=== PATIENT | female | born 1950 | race African-American/Black ===

== ENCOUNTER 2017-11-15 14:20 | Emergency (ER) | payer SELFPAY ==
[~2017-11-15] VITALS: Ht 170.2 cm; Wt 100.0 kg
[~2017-11-15 14:20] MED LIST: ASPI-1160
[2017-11-15 14:48] VITALS: BP 198/86
== END 2017-11-15 16:00 | disposition home or self-care (01) ==
LOC: ER 14:20
DX: S05.01XA Injury of conjunctiva and corneal abrasion without foreign body, right eye, initial encounter (principal); W22.8XXA Striking against or struck by other objects, initial encounter; Y93.89 Activity, other specified; Y92.098 Other place in other non-institutional residence as the place of occurrence of the external cause
CPT/HCPCS: 99283

== ENCOUNTER 2018-08-05 07:27 | Emergency (ER) | payer SELFPAY ==
[~2018-08-05] VITALS: Ht 167.6 cm; Wt 102.0 kg
[2018-08-05 08:03] LABS: BASOPHILS % 0.5 % (0.0-2.0); EOSINOPHILS % 0.7 % (0.0-5.0); HEMATOCRIT. 42.8 % (36.0-48.0); HEMOGLOBIN. 14.1 g/dL (12.0-16.0); LYMPHOCYTES % 24.6 % (20.0-50.0); MEAN CORPUSCULAR VOLUME 90.8 fL (81.0-99.0); MEAN PLATELET VOLUME 7.9 fl (7.4-10.4); MONOCYTES % 7.3 % (2.0-8.0); NEUTROPHILS % 66.9 % (40.0-76.0); PLATELET 320 x1000/uL (130-400); RED BLOOD CELL COUNT 4.71 mill/uL (4.2-5.4); RED CELL DISTRIBUTION WIDTH 13.7 % (11.6-14.6)
[2018-08-05 08:10] LABS: CHLORIDE 106 mEq/L (98-107)
[2018-08-05 08:49] VITALS: BP 132/72
== END 2018-08-05 08:53 | disposition home or self-care (01) ==
LOC: ER 07:27
DX: K64.4 Residual hemorrhoidal skin tags (principal); K62.5 Hemorrhage of anus and rectum; I10 Essential (primary) hypertension; F12.10 Cannabis abuse, uncomplicated; Z79.82 Long term (current) use of aspirin; Z88.5 Allergy status to narcotic agent; Z88.0 Allergy status to penicillin
CPT/HCPCS: 36415; 99283

== ENCOUNTER 2020-06-05 20:40 | Emergency (ER) | payer MEDICAID, MEDICARE ==
[~2020-06-05] VITALS: Ht 162.6 cm; Wt 100.0 kg
[2020-06-05] MEDS ORDERED: DIPH25CA83 MT (22:35)
[2020-06-05 22:59] VITALS: BP 163/70
== END 2020-06-05 23:00 | disposition home or self-care (01) ==
LOC: ER 20:40
DX: L23.3 Allergic contact dermatitis due to drugs in contact with skin (principal); T50.B95A Adverse effect of other viral vaccines, initial encounter; Y93.89 Activity, other specified; I10 Essential (primary) hypertension; Y92.098 Other place in other non-institutional residence as the place of occurrence of the external cause
CPT/HCPCS: 99282

== ENCOUNTER 2020-06-06 21:31 | Emergency (ER) | payer MEDICAID, MEDICARE ==
[~2020-06-06] VITALS: Ht 162.6 cm; Wt 100.0 kg
[~2020-06-06 21:31] MED LIST changes: +DIPH25CA83 MT
[2020-06-06 21:37] VITALS: BP 183/86
[2020-06-06] MEDS ORDERED: DIPHENHYDRAMINE 25MG CAPSULE PO NR (22:15)
[2020-06-06] MEDS ORDERED: DIPHENHYDRAMINE 25MG CAPSULE PO ONE (22:15)
== END 2020-06-06 22:22 | disposition home or self-care (01) ==
LOC: ER 21:31
DX: M79.602 Pain in left arm (principal); S40.022A Contusion of left upper arm, initial encounter; L50.9 Urticaria, unspecified; T50.B95A Adverse effect of other viral vaccines, initial encounter; Y93.89 Activity, other specified; Y92.89 Other specified places as the place of occurrence of the external cause; I10 Essential (primary) hypertension
CPT/HCPCS: 99283; Q0163

== ENCOUNTER 2020-07-13 03:24 | Inpatient (IN) | payer MEDICAID, MEDICARE ==
[~2020-07-13] VITALS: Ht 157.5 cm; Wt 96.2 kg
[2020-07-13] MEDS ORDERED: NITROGLYCERIN OINT 1GM/INCH UDPKT TD ONE (04:15)
[2020-07-13] MEDS ORDERED: CLONIDINE 0.2MG TABLET PO ONE (04:15)
[2020-07-13] MEDS ORDERED: DIPHENHYDRAMINE 50MG/ML VIAL IV ONE (04:15)
[2020-07-13] MEDS ORDERED: METHYLPREDNISOLONE SOD SUCC 125 MG/2 ML VIAL IV ONE (04:15)
[2020-07-13] MEDS ORDERED: EPINEPHRINE 1:1000 1 MG/ML AMP INJ ONE (04:15)
[2020-07-13] MEDS ORDERED: DILTIAZEM HCL 120MG CAPSULE CD 24HR PO SCH (06:00)
[2020-07-13] MEDS ORDERED: DILTIAZEM HCL 5MG/ML 5ML VIAL IV ONE (06:00)
[2020-07-13] MEDS ORDERED: ONDANSETRON HCL 4MG/2ML INJ IV PRN (06:45)
[2020-07-13] MEDS ORDERED: TRAMADOL 50MG TABLET PO PRN (06:45)
[2020-07-13] MEDS ORDERED: ACETAMINOPHEN 325MG TABLET PO PRN ×2 (06:45)
[2020-07-13] MEDS ORDERED: LORAZEPAM 0.5MG TABLET PO PRN (06:45)
[2020-07-13] MEDS ORDERED: CLONIDINE 0.1MG TABLET PO PRN (06:45)
[2020-07-13] MEDS ORDERED: IPRATROPIUM/ALBUTEROL 0.5-3(2.5)MG/3ML NEB NEB PRN (06:45)
[2020-07-13] MEDS ORDERED: NITROGLYCERIN 0.4MG TABLET SL SL PRN (06:45)
[2020-07-13] MEDS ORDERED: GUAIFENESIN 200MG/10ML SUGAR FREE UDC PO PRN (06:45)
[2020-07-13 08:09] LABS: INR 1.1
[2020-07-13 08:14] LABS: T4 FREE 1.05 ng/dL (0.76-1.46)
[2020-07-13] MEDS ORDERED: ENOXAPARIN 100MG/ML SYR SUBCUT SCH ×2 (09:00→10:00)
[2020-07-13] MEDS ORDERED: DOCUSATE SODIUM 100MG CAPSULE PO PRN (09:00)
[2020-07-13] MEDS ORDERED: MAGNESIUM/ALUMINUM HYDROXIDE/SIMETHICONE 30ML UDC PO PRN (09:00)
[2020-07-13] MEDS ORDERED: ASPIRIN 325MG EC TABLET PO SCH (09:00)
[2020-07-13] MEDS: LISINOPRIL 20MG TABLET PO SCH ×3 (09:00→21:14)
[2020-07-13] MEDS: ZINC SULFATE 220 MG ( 50 ) CAPSULE PO SCH (09:40)
[2020-07-13] MEDS: FAMOTIDINE 20MG TABLET PO SCH ×2 (09:41→21:10)
[2020-07-13] MEDS: CHOLECALCIFEROL (D3) 1000 UNIT TABLET PO SCH (09:41)
[2020-07-13] MEDS: ASCORBIC ACID 500 MG TABLET PO SCH ×2 (09:41→21:10)
[2020-07-13] MEDS: DILTIAZEM HCL 60MG TABLET PO SCH ×2 (12:00→18:00)
[2020-07-13 12:43] LABS: FOLIC ACID (FOLATE) SERUM 18.6 ng/mL (>5.38)
[2020-07-13 15:09] VITALS: BP 133/66
[2020-07-13 16:15] VITALS: BP 133/66
[2020-07-13 17:39] LABS: BASOPHILS % 0.1 % (0.0-2.0); HEMATOCRIT. 39.3 % (36.0-48.0); LYMPHOCYTES % 14.4 % (20.0-50.0); MEAN CORPUSCULAR HEMOGLOBIN 30.1 pg (28.0-32.0); MEAN CORPUSCULAR VOLUME 91.1 fL (81.0-99.0); MEAN PLATELET VOLUME 8.3 fl (7.4-10.4); MONOCYTES % 1.9 % (2.0-8.0); NEUTROPHILS % 83.6 % (40.0-76.0); PLATELET 389 x1000/uL (130-400); RED BLOOD CELL COUNT 4.31 mill/uL (4.2-5.4); RED CELL DISTRIBUTION WIDTH 13.7 % (11.6-14.6)
[2020-07-13 17:49] LABS: CHLORIDE 110 mEq/L (98-107)
[2020-07-13 17:54] LABS: INR 1.1; PROTHROMBIN TIME 12.1 sec (9.6-11.0)
[2020-07-13 17:57] LABS: CREATINE KINASE 105 IU/L (26-192)
[2020-07-13 18:01] LABS: CREATINE KINASE MB FRACTION 1.4 ng/mL (0.5-3.6)
[2020-07-13 20:00] VITALS: BP 118/59
[2020-07-13] MEDS ORDERED: BENAZEPRIL 10MG TABLET PO PRN (20:00)
[2020-07-13] MEDS ORDERED: ZOLPIDEM TARTRATE 5MG TABLET PO PRN (21:00)
[2020-07-13] MEDS: ENOXAPARIN 100MG/ML SYR SUBCUT SCH ×2 (21:00→21:12)
[2020-07-13] MEDS: ATORVASTATIN CALCIUM 10MG TABLET PO SCH (21:10)
[2020-07-13] MEDS: DIPHENHYDRAMINE 25MG CAPSULE PO PRN (21:10)
[2020-07-13 23:22] LABS: CREATINE KINASE 115 IU/L (26-192)
[2020-07-13 23:23] LABS: CREATINE KINASE MB FRACTION 1.4 ng/mL (0.5-3.6)
[2020-07-14] VITALS: BP 144/68
[2020-07-14 04:00] VITALS: BP 104/53
[2020-07-14] MEDS: DILTIAZEM HCL 60MG TABLET PO SCH ×2 (05:43)
[2020-07-14 06:06] LABS: BASOPHILS % 0.1 % (0.0-2.0); HEMATOCRIT. 37.7 % (36.0-48.0); HEMOGLOBIN. 12.3 g/dL (12.0-16.0); LYMPHOCYTES % 23.6 % (20.0-50.0); MEAN CORPUSCULAR HEMOGLOBIN 30.2 pg (28.0-32.0); MEAN CORPUSCULAR VOLUME 92.3 fL (81.0-99.0); MEAN PLATELET VOLUME 8.6 fl (7.4-10.4); MONOCYTES % 10.1 % (2.0-8.0); NEUTROPHILS % 66.2 % (40.0-76.0); PLATELET 349 x1000/uL (130-400); RED BLOOD CELL COUNT 4.08 mill/uL (4.2-5.4); RED CELL DISTRIBUTION WIDTH 14.2 % (11.6-14.6)
[2020-07-14 06:18] LABS: CHLORIDE 110 mEq/L (98-107)
[2020-07-14 06:26] LABS: PHOSPHORUS 3.4 mg/dL (2.5-4.9)
[2020-07-14 08:18] VITALS: BP 165/85
[2020-07-14] MEDS: LISINOPRIL 20MG TABLET PO SCH ×2 (09:00→09:02)
[2020-07-14] MEDS: ENOXAPARIN 100MG/ML SYR SUBCUT SCH ×3 (09:00→20:31)
[2020-07-14] MEDS: FAMOTIDINE 20MG TABLET PO SCH ×2 (09:02→20:32)
[2020-07-14] MEDS: ZINC SULFATE 220 MG ( 50 ) CAPSULE PO SCH (09:02)
[2020-07-14] MEDS: ASCORBIC ACID 500 MG TABLET PO SCH ×2 (09:03→20:32)
[2020-07-14] MEDS: ASPIRIN 81MG EC TABLET PO SCH (09:03)
[2020-07-14] MEDS: CHOLECALCIFEROL (D3) 1000 UNIT TABLET PO SCH (09:03)
[2020-07-14 11:51] VITALS: BP 149/78
[2020-07-14 16:07] VITALS: BP 168/86
[2020-07-14] MEDS: DIPHENHYDRAMINE 25MG CAPSULE PO PRN (16:10)
[2020-07-14] MEDS: LISINOPRIL 10MG TABLET PO SCH (17:35)
[2020-07-14 20:00] VITALS: BP 156/79
[2020-07-14] MEDS: ATORVASTATIN CALCIUM 10MG TABLET PO SCH (20:32)
[2020-07-15] VITALS: BP 102/60
[2020-07-15 04:00] VITALS: BP 137/68
[2020-07-15 08:00] VITALS: BP 159/86
[2020-07-15] MEDS ORDERED: DILTIAZEM HCL 120MG CAPSULE CD 24HR PO SCH (09:00)
[2020-07-15] MEDS: CHOLECALCIFEROL (D3) 1000 UNIT TABLET PO SCH (09:36)
[2020-07-15] MEDS: LISINOPRIL 10MG TABLET PO SCH (09:36)
[2020-07-15] MEDS: ZINC SULFATE 220 MG ( 50 ) CAPSULE PO SCH (09:36)
[2020-07-15] MEDS: ASCORBIC ACID 500 MG TABLET PO SCH (09:36)
[2020-07-15] MEDS: ASPIRIN 81MG EC TABLET PO SCH (09:37)
[2020-07-15] MEDS: FAMOTIDINE 20MG TABLET PO SCH (09:37)
[2020-07-15] MEDS: ENOXAPARIN 100MG/ML SYR SUBCUT SCH (09:38)
[2020-07-15 10:46] VITALS: BP 166/133
== END 2020-07-15 12:36 | disposition home or self-care (01) | DRG 309 ==
LOC: ER 03:24 → 6WST 06:10 → SUPCPDRO 06:32 → ENRESERV 13:37
PROVIDERS: ADMIT Internal Medicine; ATTEND Internal Medicine
DX: I48.0 Paroxysmal atrial fibrillation (principal); I16.1 Hypertensive emergency; L50.0 Allergic urticaria; E78.00 Pure hypercholesterolemia, unspecified; F12.90 Cannabis use, unspecified, uncomplicated; I10 Essential (primary) hypertension; Z79.899 Other long term (current) drug therapy; Z87.891 Personal history of nicotine dependence; Z88.6 Allergy status to analgesic agent
CPT/HCPCS: 36415; 80053; 80061; 82550; 82553; 82607; 82746; 83036; 83540; 83550; 83735; 84100; 84439; 84443; 84484; 85025; 93005; 93306; 93970; 99291; J1200; J1650; J2930; J3490; Q0163